=== PATIENT | female | born 1990 ===

== ENCOUNTER 2022-12-30 07:14 | Day surgery (SDC) | payer OTHER ==
[2022-12-30] MEDS ORDERED: TRAM1TAB98 PO (15:33)
== END 2022-12-30 17:15 | disposition home or self-care (01) ==
LOC: CIR.AMB 07:14 → ADM 12:15 → CIR.AMB 12:15
PROVIDERS: ATTEND Surgery
DX: C20 Malignant neoplasm of rectum (principal); K62.5 Hemorrhage of anus and rectum; Z20.822 Contact with and (suspected) exposure to COVID-19

== ENCOUNTER 2023-05-29 12:30 | Inpatient (IN) | payer OTHER ==
[~2023-05-29] VITALS: Ht 170.2 cm; Wt 79.4 kg
[~2023-05-29 12:30] MED LIST: TRAM1TAB98 PO
[2023-05-29 17:27] LABS: INR 1.11; PROTHROMBIN TIME 11.6 SECONDS (9.0-11.5)
[2023-06-06 17:36] LABS: HEMATOCRIT 36.4 % (36.0-45.00); HEMOGLOBIN 12.1 g/dL (12.0-15.00); MEAN CELL VOLUME 92.4 fL (80.00-100.00); MEAN CORPUSCULAR HEMOGLOBIN 30.9 pg (27.00-32.0); MEAN CORPUSCULAR HGB CONC 33.4 g/dl (32.0-36.0); PLATELET COUNT 254 K/uL (150-450); RED BLOOD COUNT 3.93 M/uL (4.00-6.00); RED CELL DISTRIBUTION WIDTH 12.3 % (11.5-14.5)
[2023-06-06 17:51] LABS: ALBUMIN 3.8 gm/dL (3.4-5.0); CALCIUM 9.3 mg/dL (8.5-10.1); CREATININE SERUM 0.66 mg/dL (0.55-1.02); GFR 101.91; MAGNESIUM 1.8 mg/dL (1.8-2.4); PHOSPHOROUS 4.6 mg/dL (2.5-4.9); POTASSIUM 3.5 mEq/L (3.5-5.1)
[2023-06-07 06:58] LABS: ALBUMIN 3.3 gm/dL (3.4-5.0); CALCIUM 8.9 mg/dL (8.5-10.1); CREATININE SERUM 0.48 mg/dL (0.55-1.02); GFR 147.18; MAGNESIUM 1.7 mg/dL (1.8-2.4); PHOSPHOROUS 4.2 mg/dL (2.5-4.9); POTASSIUM 3.72 mEq/L (3.5-5.1)
[2023-06-07 07:01] LABS: HEMATOCRIT 33.5 % (36.0-45.00); HEMOGLOBIN 11.6 g/dL (12.0-15.00); MEAN CELL VOLUME 89.7 fL (80.00-100.00); MEAN CORPUSCULAR HGB CONC 34.6 g/dl (32.0-36.0); PLATELET COUNT 265 K/uL (150-450); RED BLOOD COUNT 3.73 M/uL (4.00-6.00); RED CELL DISTRIBUTION WIDTH 12.5 % (11.5-14.5)
[2023-06-08 07:43] LABS: HEMATOCRIT 32.1 % (36.0-45.00); HEMOGLOBIN 10.8 g/dL (12.0-15.00); MEAN CELL VOLUME 92.7 fL (80.00-100.00); MEAN CORPUSCULAR HEMOGLOBIN 31.2 pg (27.00-32.0); MEAN CORPUSCULAR HGB CONC 33.7 g/dl (32.0-36.0); PLATELET COUNT 212 K/uL (150-450); RED BLOOD COUNT 3.47 M/uL (4.00-6.00); RED CELL DISTRIBUTION WIDTH 12.6 % (11.5-14.5)
[2023-06-08 08:04] LABS: CALCIUM 8.4 mg/dL (8.5-10.1); CREATININE SERUM 0.57 mg/dL (0.55-1.02); GFR 120.7; MAGNESIUM 2.1 mg/dL (1.8-2.4); PHOSPHOROUS 3.2 mg/dL (2.5-4.9); POTASSIUM 3.65 mEq/L (3.5-5.1)
[2023-06-08] MEDS ORDERED: STOOL SOFTENER50 MG (14:12)
[2023-06-09] MEDS ORDERED: ACETAMINOPHEN500 M2 PO (11:31)
[2023-06-09] MEDS ORDERED: NEURONTIN300 MG PO (11:31)
== END 2023-06-09 14:12 | disposition home or self-care (01) | DRG 330 ==
LOC: O/R 06-06 06:06 → SURH 06-06 07:00 → SURG 06-06 15:05 → SURH 06-06 16:08
PROVIDERS: Internal Medicine Geriatric Medicine; ADMIT Surgery; ATTEND Surgery
PROC: 0DTN4ZZ Resection of Sigmoid Colon, Percutaneous Endoscopic Approach (ICD-10-PCS; 2023-06-06)
PROC: 0DTP4ZZ Resection of Rectum, Percutaneous Endoscopic Approach (ICD-10-PCS; 2023-06-06)
PROC: 07BC4ZZ Excision of Pelvis Lymphatic, Percutaneous Endoscopic Approach (ICD-10-PCS; 2023-06-06)
PROC: 0D1B4Z4 Bypass Ileum to Cutaneous, Percutaneous Endoscopic Approach (ICD-10-PCS; principal; 2023-06-06 07:00)
DX: C20 Malignant neoplasm of rectum (principal); K62.5 Hemorrhage of anus and rectum; K63.3 Ulcer of intestine; D49.0 Neoplasm of unspecified behavior of digestive system; R59.0 Localized enlarged lymph nodes; N73.6 Female pelvic peritoneal adhesions (postinfective); D64.89 Other specified anemias; Z92.21 Personal history of antineoplastic chemotherapy

== ENCOUNTER 2024-02-12 11:15 | Inpatient (IN) | payer OTHER ==
[~2024-02-12 11:15] MED LIST changes: +ACETAMINOPHEN500 M2 PO; +NEURONTIN300 MG PO; +STOOL SOFTENER50 MG
[2024-02-12] MEDS ORDERED: ZOFRAN8 MG (13:46)
[2024-02-12] MEDS ORDERED: FIORICET (13:47)
[2024-02-12] MEDS ORDERED: FAMOTIDINE20 MG (13:47)
[2024-02-16] MEDS ORDERED: LIDOCAINE HCL 1%/EPINEPHRINE 20ML VIAL IJ ONE (11:53)
[2024-02-16] MEDS ORDERED: CEFTRIAXONE SODIUM 2,000 MG VIAL ONE (11:53)
[2024-02-16] MEDS ORDERED: BUPIVACAINE HCL/MPF 0.5% 30ML VIAL ONE (11:53)
[2024-02-16] MEDS ORDERED: METRONIDAZOLE/SODIUM CHLORIDE 500 MG/100 ML PIGGYBACK IV ONE (11:54)
[2024-02-16] MEDS ORDERED: CHLORHEXIDINE GLUCONATE 120 ML BOTTLE TOP ONE (11:58)
[2024-02-16] MEDS ORDERED: MORPHINE SULFATE 4 MG/ML CARTRIDGE IV PRN (12:45)
[2024-02-16] MEDS ORDERED: DEXTROSE 50 % IN WATER 0.5 G/ML DISP.SYRIN IV PRN (12:45)
[2024-02-16] MEDS ORDERED: RINGERS SOLUTION,LACTATED 1,000 ML IV SCH (12:45)
[2024-02-16] MEDS ORDERED: ONDANSETRON HCL 2 MG/ML VIAL IV PRN (12:45)
[2024-02-16] MEDS ORDERED: OxyCODONE HCL 5 MG TABLET (ROXICODONE) PO PRN (12:45)
[2024-02-16] MEDS ORDERED: HYOSCYAMINE SULFATE 0.125 MG TAB.SUBL SL SCH (13:00)
[2024-02-16] MEDS ORDERED: ACETAMINOPHEN 500 MG GEL..CAP PO SCH (14:00)
[2024-02-16] MEDS ORDERED: ONDANSETRON HCL 2 MG/ML VIAL ONE (14:28)
[2024-02-16] MEDS ORDERED: MORPHINE SULFATE 4 MG/ML VIAL IV ONE (14:30)
[2024-02-16 15:35] LABS: HEMATOCRIT 33.4 % (36.0-45.00); HEMOGLOBIN 11.3 g/dL (12.0-15.00); MEAN CELL VOLUME 90.8 fL (80.00-100.00); MEAN CORPUSCULAR HEMOGLOBIN 30.7 pg (27.00-32.0); MEAN CORPUSCULAR HGB CONC 33.8 g/dl (32.0-36.0); PLATELET COUNT 170 K/uL (150-450); RED BLOOD COUNT 3.68 M/uL (4.00-6.00); RED CELL DISTRIBUTION WIDTH 14.6 % (11.5-14.5)
[2024-02-16 15:58] LABS: ALBUMIN 3.3 gm/dL (3.4-5.0); CALCIUM 8.8 mg/dL (8.5-10.1); CREATININE SERUM 0.61 mg/dL (0.55-1.02); GFR 110.98; MAGNESIUM 1.9 mg/dL (1.8-2.4); PHOSPHOROUS 3.8 mg/dL (2.5-4.9); POTASSIUM 3.59 mEq/L (3.5-5.1)
[2024-02-16] MEDS ORDERED: POLYETHYLENE GLYCOL 3350 17 GM BLIST.PACK PO SCH (17:00)
[2024-02-16] MEDS ORDERED: GABAPENTIN 300 MG CAPSULE PO SCH (17:00)
[2024-02-16] MEDS ORDERED: FAMOTIDINE/PF 20 MG/2 ML VIAL IV PUSH SCH (21:00)
[2024-02-17 00:32] VITALS: BP 122/77; O2SAT 96
[2024-02-17 06:32] LABS: HEMATOCRIT 33.4 % (36.0-45.00); HEMOGLOBIN 11.4 g/dL (12.0-15.00); MEAN CELL VOLUME 89.8 fL (80.00-100.00); MEAN CORPUSCULAR HEMOGLOBIN 30.8 pg (27.00-32.0); MEAN CORPUSCULAR HGB CONC 34.3 g/dl (32.0-36.0); PLATELET COUNT 180 K/uL (150-450); RED BLOOD COUNT 3.72 M/uL (4.00-6.00); RED CELL DISTRIBUTION WIDTH 14.6 % (11.5-14.5)
[2024-02-17 07:43] LABS: ALBUMIN 3.2 gm/dL (3.4-5.0); CALCIUM 8.8 mg/dL (8.5-10.1); CREATININE SERUM 0.5 mg/dL (0.55-1.02); GFR 139.6; MAGNESIUM 1.9 mg/dL (1.8-2.4); PHOSPHOROUS 4.5 mg/dL (2.5-4.9); POTASSIUM 3.81 mEq/L (3.5-5.1)
[2024-02-17 08:00] VITALS: BP 117/60; O2SAT 97
[2024-02-17] MEDS ORDERED: LACTOBACILLUS ACIDOPHILUS 1 CAP CAP PO SCH (09:00)
[2024-02-17] MEDS ORDERED: ENOXAPARIN SODIUM 40 MG/0.4 ML SYRINGE SUBCUTANEO SCH (17:00)
[2024-02-17 17:45] VITALS: BP 110/72; O2SAT 100
[2024-02-17] MEDS ORDERED: PHENOL 177 ML BOTTLE MM SCH (18:21)
[2024-02-18 00:20] VITALS: BP 114/65; O2SAT 99
[2024-02-18 08:22] LABS: HEMATOCRIT 31.9 % (36.0-45.00); MEAN CELL VOLUME 90.2 fL (80.00-100.00); MEAN CORPUSCULAR HEMOGLOBIN 31.1 pg (27.00-32.0); MEAN CORPUSCULAR HGB CONC 34.4 g/dl (32.0-36.0); PLATELET COUNT 156 K/uL (150-450); RED BLOOD COUNT 3.54 M/uL (4.00-6.00); RED CELL DISTRIBUTION WIDTH 14.4 % (11.5-14.5)
[2024-02-18 08:30] LABS: CALCIUM 8.5 mg/dL (8.5-10.1); CREATININE SERUM 0.46 mg/dL (0.55-1.02); GFR 153.7; PHOSPHOROUS 3.2 mg/dL (2.5-4.9); POTASSIUM 3.67 mEq/L (3.5-5.1)
[2024-02-18 08:48] VITALS: BP 112/62; O2SAT 95
[2024-02-18] MEDS ORDERED: PHENOL 177 ML BOTTLE MM SCH (09:00)
[2024-02-18] MEDS ORDERED: ENOXAPARIN SODIUM 40 MG/0.4 ML SYRINGE SUBCUTANEO SCH (09:00)
[2024-02-18 16:00] VITALS: BP 134/74; O2SAT 96
[2024-02-18] MEDS ORDERED: MORPHINE SULFATE 4 MG/ML CARTRIDGE IV PRN (19:00)
[2024-02-18] MEDS ORDERED: ONDANSETRON HCL 2 MG/ML VIAL IV SCH (21:00)
[2024-02-19] VITALS: BP 135/74; O2SAT 97
[2024-02-19 08:19] VITALS: BP 125/84; O2SAT 97
[2024-02-19 16:00] VITALS: BP 106/63; O2SAT 95
[2024-02-20] VITALS: BP 137/70; O2SAT 96
[2024-02-20 06:44] LABS: HEMATOCRIT 31.5 % (36.0-45.00); MEAN CELL VOLUME 89.5 fL (80.00-100.00); MEAN CORPUSCULAR HEMOGLOBIN 31.2 pg (27.00-32.0); MEAN CORPUSCULAR HGB CONC 34.8 g/dl (32.0-36.0); PLATELET COUNT 201 K/uL (150-450); RED BLOOD COUNT 3.52 M/uL (4.00-6.00); RED CELL DISTRIBUTION WIDTH 14.3 % (11.5-14.5)
[2024-02-20 07:15] LABS: CALCIUM 8.5 mg/dL (8.5-10.1); CREATININE SERUM 0.45 mg/dL (0.55-1.02); GFR 157.65; MAGNESIUM 2.1 mg/dL (1.8-2.4); POTASSIUM 3.6 mEq/L (3.5-5.1)
[2024-02-20 09:35] VITALS: BP 135/69; O2SAT 97
[2024-02-20] MEDS ORDERED: SODIUM CHLORIDE 0.45 % 1,000 ML IV SCH (10:30)
[2024-02-20 16:56] VITALS: BP 114/59; O2SAT 98
[2024-02-21] VITALS: BP 114/55; O2SAT 98
[2024-02-21 08:54] VITALS: BP 118/63; O2SAT 100
[2024-02-21 16:00] VITALS: BP 117/72; O2SAT 96
[2024-02-22] VITALS: BP 125/77; O2SAT 96
[2024-02-22 08:40] VITALS: BP 121/58; O2SAT 97
[2024-02-22] MEDS ORDERED: INTESTINEX680 M1 PO (11:54)
[2024-02-22] MEDS ORDERED: HYOSCYAMINE0.125 M1 SL (11:54)
== END 2024-02-22 12:08 | disposition home or self-care (01) | DRG 348 ==
LOC: SURH 02-16 07:00 → SURG 02-16 08:52 → O/R 02-16 08:52 → SURH 02-16 11:15 → SURG 02-16 15:25
PROVIDERS: Internal Medicine Geriatric Medicine; ADMIT Surgery; ATTEND Surgery
PROC: 0DBB4ZZ Excision of Ileum, Percutaneous Endoscopic Approach (ICD-10-PCS; principal; 2024-02-16 07:00)
DX: Z43.2 Encounter for attention to ileostomy (principal); C20 Malignant neoplasm of rectum; K62.5 Hemorrhage of anus and rectum